=== PATIENT | male | born 1985 | race Caucasian/White ===

== ENCOUNTER 2017-08-10 13:19 | Emergency (ER) | payer OTHER, SELFPAY ==
[2017-08-10 13:22] VITALS: BP 136/85; PULSE 75; RESP 18; TEMP 36.6; O2SAT 100; BMI 29.9
--- NOTE | 2017-08-10 14:25 | PC.NURSE ---
Feeling pain mostly in back but also around the front of his chest - increases with movement - encouraged to relax
--- NOTE | 2017-08-10 15:16 | ED_ITS ---
HPI - SOB/Dyspnea General Chief Complaint: Shortness of Breath/Dyspnea Stated Complaint: BACK PAIN, HARD TO BREATHE Time Seen by Provider: 08/10/17 15:00 Source: patient Mode of arrival: ambulatory Limitations: no limitations History of Present Illness Patient is here for evaluation of left-sided thoracic back pain. He states that it started this morning when he woke up. He states that the pain was with causing him to have shortness of breath. Denies any urinary symptoms. No skin changes. No specific trauma. He has active duty. Has not tried anything for it. Related Data Previous Rx's Medication Instructions Recorded cyclobenzaprine 10 mg PO TID PRN #7 tab 08/10/17 Allergies Allergy/AdvReac Type Severity Reaction Status Date / Time No Known Drug Allergies Allergy Verified 08/10/17 13:27 Review of Systems Constitutional Denies chills, Denies fever(s), Denies lethargy and Denies weakness Respiratory Comments: Shortness of breath secondary to the left-sided back pain Gastrointestinal Gastrointestinal: Denies constipation, Denies diarrhea, Denies nausea and Denies vomiting Genitourinary Denies hematuria, Reports flank pain, Denies urinary incontinence and Denies urinary urgency Musculoskeletal Reports back pain Comments: Left-sided back pain Integumentary/Breasts Denies pruritus, Denies erythema, Denies rash and Denies wounds Neurologic Denies radicular pain and Denies weakness Hematologic/Lymphatic Denies easy bruising [facility] Social History Smoking Status: Former smoker Exam Const General: cooperative and well developed Nutritional Appearance: well nourished Orientation: alert, awake, oriented x3 and not confused Resp Effort & Inspection: normal respiratory effort, able to speak in complete sentences, no respiratory distress and no use of accessory muscles Auscultation: clear to auscultation bilaterally, no rales, no rhonchi and no wheezes Back/Spine/Pelvis Other: Cervical spine unremarkable Patient with paraspinal left-sided neck pain with fullness in the muscle over this area. Minimal right-sided pain. Skin General: no rashes or lesions noted, No jaundice and No petechiae Extrem General: full ROM, no clubbing, cyanosis or edema, no pedal edema and no calf tenderness Course Orders Ordered: Discontinued Medications Ketorolac Tromethamine (Toradol) 30 mg IM NOW ONE Stop: 08/10/17 15:15 Last Admin: 08/10/17 15:18 Dose: 30 mg Last Vital Signs Temp 97.8 F 08/10/17 13:22 Pulse 72 08/10/17 15:23 Resp 14 08/10/17 15:23 BP 137/84 H 08/10/17 15:23 Pulse Ox 100 08/10/17 15:23 MDM - SOB/Dyspnea MDM Narrative Medical decision making narrative: Patient with paraspinal left-sided mid to lower back pain. No radicular symptoms. No skin rash consistent with zoster. Does not have any urinary symptoms. His exam is not consistent with pyelonephritis or UTI. It does seem to be more muscle fullness on the left side in the area where his tenderness is compared to the right. I suspect that his symptoms are musculoskeletal. He was given a Toradol shot here in the emergency department is sent home with a prescription for muscle relaxers. He was given return precautions. He is active duty. He was instructed he needed to follow up with his medical department for any work-related restrictions. He expressed understanding. And agreement with plan Discharge Plan Departure Patient Disposition: Home, Self-Care Clinical Impression: Muscle spasm of back Discharge Date/Time: 08/10/17 15:30 Interventions: ED Discharge Assessment Last Done: 08/10/17 15:27 Instructions: How To Perform RICE (Rest, Ice, Compress, Elevate), DI for Muscle Spasm Activity Restrictions/Additional Instructions: Take all of your medications as instructed. Contact your medical department for a follow-up. Return to the emergency department for any new or worsening symptoms Prescriptions: New cyclobenzaprine 10 mg tablet 10 mg PO TID PRN (Reason: muscle spasm) Qty: 7 RF: 0
[2017-08-10] MEDS: KETOROLAC 60 MG/2 ML VIAL 30 MG IM (15:18)
[2017-08-10 15:23] VITALS: BP 137/84; PULSE 72; RESP 14; O2SAT 100
== END 2017-08-10 15:30 | disposition home or self-care (01) ==
PROVIDERS: Emergency Provider Emergency Medicine
DX: M62.830 Muscle spasm of back (principal)
CPT/HCPCS: 96372; 99282; 99283; J1885